=== PATIENT | male | born 1985 | race African-American/Black ===

== ENCOUNTER 2021-01-17 14:55 | Emergency (ER) | payer OTHER ==
[~2021-01-17] VITALS: Ht 175.3 cm; Wt 97.5 kg
[~2021-01-17 14:55] MED LIST: AMLO10TA PO; METF1000 PO
[2021-01-17 15:08] VITALS: BP 156/91
--- NOTE | 2021-01-17 15:13 | NUR ---
pt ambulated to bed 9 with steady gait
--- NOTE | 2021-01-17 15:19 | NUR ---
35 Y/O MALE C/O L SHOULDER PAIN S/P RUNNING AFTER 1 YEAR OLD SON AND FELL ON LEFT SHOULDER EARLIER TODAY. PT ABLE TO PERFORM ROM BUT C/O PAIN. RADIAL PULSES +2 AND CAP REFILL <3 SECONDS. PT STATES HE HAS HAD PREVIOUS INJURY, DISLOCATED LEFT SHOULDER ABOUT 3 YEARS AGO. PT RATES PAIN IS 8/10 THAT IS SHARP AND RADIATES TO CHEST.PT DENIES TAKING ANYTHING FOR PAIN. PT DENIES N/V/SOB. PT IS A/O X4 WITH EVEN AND UNLABORED RESPIRATIONS. PT LAYING IN BED WITH BED IN LOWEST POSITION, BRAKES LOCKED, X1 SIDERAIL UP. NKDA PMH: HTN AND DM
--- NOTE | 2021-01-17 15:21 | NUR ---
DR BARRAGAN AT BEDSIDE
--- NOTE | 2021-01-17 15:29 | NUR ---
RAD AT BEDSIDE
[2021-01-17] MEDS ORDERED: IBUPROFEN 400 MG TAB PO ONE (15:30)
[2021-01-17] MEDS ORDERED: ACETAMINOPHEN 325 MG TAB PO ONE (15:30)
[2021-01-17] MEDS ORDERED: NAPR-54 PO (15:48)
--- NOTE | 2021-01-17 15:48 | NUR ---
PT REFUSED PAIN MEDS: TYLENOL AND MOTRIN. DR BARRAGAN MADE AWARE.
--- NOTE | 2021-01-17 16:01 | NUR ---
applied sling to left shoulder without any issues
[2021-01-17 16:11] VITALS: BP 156/91
== END 2021-01-17 16:12 | disposition home or self-care (01) ==
LOC: MED 14:55
DX: S43.402A Unspecified sprain of left shoulder joint, initial encounter (principal); E11.9 Type 2 diabetes mellitus without complications; I10 Essential (primary) hypertension; Z79.84 Long term (current) use of oral hypoglycemic drugs; Z79.899 Other long term (current) drug therapy; W01.0XXA Fall on same level from slipping, tripping and stumbling without subsequent striking against object, initial encounter; Y93.89 Activity, other specified; Y92.89 Other specified places as the place of occurrence of the external cause; Y99.8 Other external cause status
CPT/HCPCS: 73030; 99283